=== PATIENT | female | born 1990 | race American Indian/Alaskan Native ===

== ENCOUNTER 2020-05-30 07:16 | Emergency (ER) | payer OTHER ==
[2020-05-30] MEDS ORDERED: ASPIRIN 325 MG TAB PO ONE (07:22)
[2020-05-30 07:42] LABS: Basophils # (Auto) 0.1 K/mm3 (0.0-0.1); Basophils % (Auto) 0.9 % (0.0-1.8); Eosinophils # (Auto) 0.1 K/mm3 (0.0-0.4); Eosinophils % (Auto) 2.1 % (0.0-4.3); Hematocrit 34.8 % (30.3-42.9); Hemoglobin 11.3 gm/dl (10.1-14.3); Lymphocytes % (Auto) 35.6 % (13.4-35.0); Mean Corpuscular HGB Conc 33 % (30-34); Mean Corpuscular Volume 81 fl (79-97); Monocytes # (Auto) 0.3 K/mm3 (0.0-0.8); Monocytes % (Auto) 6.1 % (0.0-7.3); Platelet Count 282 K/mm3 (140-440); Red Cell Distribution Width 14.5 % (13.2-15.2)
[2020-05-30 07:59] LABS: Blood Urea Nitrogen 9 mg/dL (7-17); Calcium 9.5 mg/dL (8.4-10.2); Hemolysis Index 3
[2020-05-30 08:04] LABS: BUN/Creatinine Ratio 13
--- NOTE | 2020-05-30 08:05 | XRay Report ---
CHEST 1 VIEW 7:50 AM INDICATION / CLINICAL INFORMATION: Chest and back pain that started this morning. Nausea and vomiting. COMPARISON: None available. FINDINGS: SUPPORT DEVICES: None. HEART / MEDIASTINUM: The heart size and pulmonary vasculature are normal. The aorta is normal in [place] area LUNGS / PLEURA: No significant pulmonary or pleural abnormality. No pneumothorax. ADDITIONAL FINDINGS: No significant additional findings. IMPRESSION: No acute findings. Signer Name: Hussein Mccarthy MD Signed: 05/30/2020 8:01 AM Workstation Name: [id number]
[2020-05-30] MEDS ORDERED: SODIUM CHLORIDE 0.9% 1000 ML 1,000 ML IV ONE (16:17)
[2020-05-30] MEDS ORDERED: ONDANSETRON 4 MG/2 ML INJ IV ONE (16:17)
[2020-05-30] MEDS ORDERED: FAMOTIDINE 20 MG/2 ML INJ IV ONE (16:17)
[2020-05-30] MEDS ORDERED: DICYCLOMINE 20 MG/2 ML INJ IM ONE (16:18)
[2020-05-30] MEDS ORDERED: KETOROLAC 30 MG/1 ML INJ IV ONE (16:18)
--- NOTE | 2020-05-30 16:29 | Emergency Department Report ---
ED General Adult HPI - General Chief complaint: Chest Pain Stated complaint: CHEST PAIN/BACK PAIN/N Time Seen by Provider: 05/30/20 16:12 Source: patient Mode of arrival: Wheelchair Limitations: No Limitations - History of Present Illness Initial comments: Patient is a 29-year-old F [place] female who is presenting with some chest back pain starting earlier this morning. Patient states that she woke up with her pain at approximately 5 AM. Patient states that pain was initially in the center back then radiated to the chest. She vomited several times and has some loose stools. States the pressure type sensation her back and chest improved after vomiting but did not completely resolved. Still has some burning sensation in the center chest and her back is just uncomfortable. States her last meal was a big potato which was loaded as well as some cake. Patient states she does occasionally get nauseous but has not attributed this to certain foods. She denies cough cold congestion fevers chills no exertional component or pleuritic component to the pain. Severity scale (0 -10): 3 - Related Data Previous Rx's Medication Instructions Recorded Last Taken Type Ciprofloxacin HCl [Ciprofloxacin 500 mg PO Q12HR #20 tab 05/30/20 Unknown Rx TAB] Ondansetron [Zofran Odt] 4 mg PO Q8HR #10 tab.rapdis 05/30/20 Unknown Rx metroNIDAZOLE [Flagyl] 500 mg PO Q12HR #20 tab 05/30/20 Unknown Rx traMADoL [Ultram] 50 mg PO Q6HR PRN #12 tablet 05/30/20 Unknown Rx Allergies Allergy/AdvReac Type Severity Reaction Status Date / Time No Known Allergies Allergy Unverified 05/30/20 07:17 ED Review of Systems ROS: Stated complaint: CHEST PAIN/BACK PAIN/N Other details as noted in HPI Comment: All other systems reviewed and negative ED Past Medical Hx - Past Medical History Previous Medical History?: No - Surgical History Past Surgical History?: No - Social History Smoking Status: Never Smoker Substance Use Type: Alcohol, Marijuana - Medications Home Medications: Home Medications Medication Instructions Recorded Confirmed Last Taken Type Ciprofloxacin HCl [Ciprofloxacin 500 mg PO Q12HR #20 tab 05/30/20 Unknown Rx TAB] Ondansetron [Zofran Odt] 4 mg PO Q8HR #10 tab.rapdis 05/30/20 Unknown Rx metroNIDAZOLE [Flagyl] 500 mg PO Q12HR #20 tab 05/30/20 Unknown Rx traMADoL [Ultram] 50 mg PO Q6HR PRN #12 tablet 05/30/20 Unknown Rx ED Physical Exam - General Limitations: No Limitations General appearance: alert, in no apparent distress - Head Head exam: Present: atraumatic, normocephalic - Eye Eye exam: Present: normal appearance, PERRL, EOMI - ENT ENT exam: Present: normal orophraynx, mucous membranes moist - Neck Neck exam: Present: normal inspection - Respiratory Respiratory exam: Present: normal lung sounds bilaterally. Absent: respiratory distress, wheezes, rales, rhonchi - Cardiovascular Cardiovascular Exam: Present: regular rate, normal rhythm, normal heart sounds. Absent: systolic murmur, diastolic murmur, rubs, gallop - GI/Abdominal GI/Abdominal exam: Present: soft, tenderness (Mild epigastric discomfort), normal bowel sounds. Absent: distended, guarding, rebound - Extremities Exam Extremities exam: Present: normal inspection - Back Exam Back exam: Present: normal inspection - Neurological Exam Neurological exam: Present: alert, oriented X3 - Psychiatric Psychiatric exam: Present: normal affect, normal mood - Skin Skin exam: Present: warm, dry, intact, normal color. Absent: rash ED Course Vital Signs 05/30/20 05/30/20 05/30/20 07:19 16:03 16:37 Temperature 98 F Pulse Rate 69 Respiratory 18 18 18 Rate Blood Pressure 102/67 O2 Sat by Pulse 98 Oximetry ED Medical Decision Making - Lab Data Result diagrams: 05/30/20 07:27 05/30/20 07:27 Lab Results 05/30/20 05/30/20 05/30/20 Range/Units 07:27 07:27 10:08 WBC 5.6 (4.5-11.0) K/mm3 RBC 4.30 (3.65-5.03) M/mm3 Hgb 11.3 (10.1-14.3) gm/dl Hct 34.8 (30.3-42.9) % MCV 81 (79-97) fl MCH 26 L (28-32) pg MCHC 33 (30-34) % RDW 14.5 (13.2-15.2) % Plt Count 282 (140-440) K/mm3 Lymph % (Auto) 35.6 H (13.4-35.0) % Hughes % (Auto) 6.1 (0.0-7.3) % Eos % (Auto) 2.1 (0.0-4.3) % Baso % (Auto) 0.9 (0.0-1.8) % Lymph # (Auto) 2.0 (1.2-5.4) K/mm3 Hughes # (Auto) 0.3 (0.0-0.8) K/mm3 Eos # (Auto) 0.1 (0.0-0.4) K/mm3 Baso # (Auto) 0.1 (0.0-0.1) K/mm3 Seg Neutrophils % 55.3 (40.0-70.0) % Seg Neutrophils # 3.1 (1.8-7.7) K/mm3 Sodium 138 (137-145) mmol/L Potassium 3.8 (3.6-5.0) mmol/L Chloride 101.6 (98-107) mmol/L Carbon Dioxide 25 (22-30) mmol/L Anion Gap 15 mmol/L BUN 9 (7-17) mg/dL Creatinine 0.7 (0.6-1.2) mg/dL Estimated GFR > 60 ml/min BUN/Creatinine Ratio 13 % Glucose 110 H (65-100) mg/dL Calcium 9.5 (8.4-10.2) mg/dL Troponin T < 0.010 < 0.010 (0.00-0.029) ng/mL 05/30/20 Range/Units 13:16 WBC (4.5-11.0) K/mm3 RBC (3.65-5.03) M/mm3 Hgb (10.1-14.3) gm/dl Hct (30.3-42.9) % MCV (79-97) fl MCH (28-32) pg MCHC (30-34) % RDW (13.2-15.2) % Plt Count (140-440) K/mm3 Lymph % (Auto) (13.4-35.0) % Hughes % (Auto) (0.0-7.3) % Eos % (Auto) (0.0-4.3) % Baso % (Auto) (0.0-1.8) % Lymph # (Auto) (1.2-5.4) K/mm3 Hughes # (Auto) (0.0-0.8) K/mm3 Eos # (Auto) (0.0-0.4) K/mm3 Baso # (Auto) (0.0-0.1) K/mm3 Seg Neutrophils % (40.0-70.0) % Seg Neutrophils # (1.8-7.7) K/mm3 Sodium (137-145) mmol/L Potassium (3.6-5.0) mmol/L Chloride (98-107) mmol/L Carbon Dioxide (22-30) mmol/L Anion Gap mmol/L BUN (7-17) mg/dL Creatinine (0.6-1.2) mg/dL Estimated GFR ml/min BUN/Creatinine Ratio % Glucose (65-100) mg/dL Calcium (8.4-10.2) mg/dL Troponin T < 0.010 (0.00-0.029) ng/mL - Radiology Data [facility] [address] [place] [address] Ultrasound Report Signed Patient: JOCELINE VENTURA MR#: [id number] : 1990 Acct:[id number] Age/Sex: 29 / F ADM Date: 05/30/20 Loc: ED Attending Dr: Ordering Physician: LINA ABREU MD Date of Service: 05/30/20 Procedure(s): US abdomen limited Accession Number(s): [id number] cc: LINA ABREU MD ULTRASOUND ABDOMEN, LIMITED (RIGHT UPPER QUADRANT) INDICATION: RUQ/epigastric pain. COMPARISON: None available. FINDINGS: PANCREAS: No significant abnormality. LIVER: No significant abnormality. GALLBLADDER: Multiple gallstones. Moderate edematous thickening of the gallbladder wall measuring up to 6 mm. Negative sonographic Marrero sign. BILE DUCTS: No significant abnormality. Common bile duct measures 2.5 mm. FREE FLUID: None. ADDITIONAL FINDINGS: Images of the right kidney are normal. IMPRESSION: Cholelithiasis. Moderate edematous gallbladder wall thickening is characteristic of acute cholecystitis. Signer Name: Hussein Mccarthy MD Signed: 05/30/2020 5:26 PM Workstation Name: [id number] - Medical Decision Making Discussed the case with Dr. Kent with general surgery. Since patient is afebrile with a normal white blood cell count feels that the patient is safe for outpatient management. Patient be started on Cipro and Flagyl and will be g iven medication for symptomatic relief. Patient be discharged home. Patient to follow-up with general surgery for elective cholecystectomy. Also counseled the patient on diet choices with gallstones. Critical care attestation.: If time is entered above; I have spent that time in minutes in the direct care of this critically ill patient, excluding procedure time. ED Disposition Clinical Impression: Acute cholecystitis Disposition: DC-01 TO HOME OR SELFCARE Is pt being admited?: No Does the pt Need Aspirin: No Condition: Stable Instructions: Gallbladder Eating Plan, Cholecystitis, [id number] Referrals: DAVION KENT DO [Staff Physician] - 3-5 Days Time of Disposition: 18:27
--- NOTE | 2020-05-30 17:30 | Ultrasound Report ---
ULTRASOUND ABDOMEN, LIMITED (RIGHT UPPER QUADRANT) INDICATION: RUQ/epigastric pain. COMPARISON: None available. FINDINGS: PANCREAS: No significant abnormality. LIVER: No significant abnormality. GALLBLADDER: Multiple gallstones. Moderate edematous thickening of the gallbladder wall measuring up to 6 mm. Negative sonographic Marrero sign. BILE DUCTS: No significant abnormality. Common bile duct measures 2.5 mm. FREE FLUID: None. ADDITIONAL FINDINGS: Images of the right kidney are normal. IMPRESSION: Cholelithiasis. Moderate edematous gallbladder wall thickening is characteristic of acute cholecystitis. Signer Name: Hussein Mccarthy MD Signed: 05/30/2020 5:26 PM Workstation Name: [id number]
[2020-05-30 19:39] VITALS: BP 104/72
== END 2020-05-30 19:39 | disposition home or self-care (01) ==
LOC: ED 07:16
DX: K81.0 Acute cholecystitis (principal); F12.90 Cannabis use, unspecified, uncomplicated; Z79.899 Other long term (current) drug therapy
CPT/HCPCS: 36415; 71045; 76705; 80048; 84484; 85025; 93005; 96361; 96372; 96374; 96375; 99285; J0500; J1885; J2405; J7030